=== PATIENT | female | born 1980 | race Caucasian/White ===

== ENCOUNTER 2021-04-01 20:35 | Day surgery (SDC) | payer OTHER, BC, MEDICAID ==
[2021-04-02 00:30] LABS: Bilirubin Neg (Negative); Blood, Urine Negative (Negative); Clarity Clear (Clear); Glucose, Urine (Dipstick) Normal (Negative); Ketone, Urine Negative (Negative); Leukocyte Negative (Negative); Nitrite Negative (Negative); Protein, Urine (Dipstick) Negative (Neg-Trace); Urobilinogen Normal mg/dL (Less than 2); pH, Urine 6.5 (5.0-9.0)
[2021-04-02 01:40] LABS: Bacteria/HPF Rare-Few HPF (None Seen); RBC/HPF 0-3 HPF (0-3); Squamous Epithelial 0-3 HPF (0-3); WBC/HPF None Seen HPF (0-3)
[2021-04-02 01:41] LABS: Mucous/LPF Rare LPF (<2+)
== END 2021-04-02 00:01 | disposition home or self-care (01) ==
LOC: CSHLD/OP 20:35
PROVIDERS: ATTEND Obstetrics & Gynecology
DX: O47.02 False labor before 37 completed weeks of gestation, second trimester (principal); O99.891 Other specified diseases and conditions complicating pregnancy; O34.219 Maternal care for unspecified type scar from previous cesarean delivery; R11.2 Nausea with vomiting, unspecified; R19.7 Diarrhea, unspecified; N85.8 Other specified noninflammatory disorders of uterus; Z3A.23 23 weeks gestation of pregnancy; Z98.51 Tubal ligation status; Z79.899 Other long term (current) drug therapy
CPT/HCPCS: 81001; 87480; 87510; 87660; 99284

== ENCOUNTER 2021-06-14 11:08 | Observation (INO) | payer BC, OTHER ==
[2021-06-14] MEDS ORDERED: hydrALAZINE 20 MG/ML VIAL SLOW IVP PRN (11:49)
[2021-06-14] MEDS ORDERED: Ondansetron PF 4 MG/2 ML Vial IVP PRN (11:49)
[2021-06-14] MEDS ORDERED: Acetaminophen 500 MG TAB PO PRN (11:49)
[2021-06-14] MEDS ORDERED: Zolpidem Tartrate 5 MG TAB PO PRN (11:49)
[2021-06-14] MEDS ORDERED: Promethazine HCl 25 MG/ML VIAL IM PRN (11:49)
[2021-06-14] MEDS ORDERED: Docusate 100 MG CAP PO PRN (11:49)
[2021-06-14] MEDS ORDERED: Azithromycin 500 MG in Sodium Chloride 0.9% 250 ML 250 ML IVPB SCH (12:00)
[2021-06-14 12:34] VITALS: BMI 31.6
[2021-06-14] MEDS: Ampicillin 2 GM in Sodium Chloride 0.9% 100 ML IVPB SCH ×2 (12:52→19:57)
[2021-06-14 13:16] LABS: #Monocytes 0.8 10x3/uL (0.0-1.1); #Neutrophils 9.1 10x3/uL (1.5-8.4); %Basophils 0.1 % (0.0-2.0); %Eosinophils 0.3 % (0.0-6.0); %Neutrophils 81.2 % (40.0-75.0); Hemoglobin 10.5 g/dL (12.0-15.5); Mean Corpuscular HGB CONC 32.2 g/dL (32.0-36.0); Mean Corpuscular Hemoglobin 28.8 pg (27.0-33.0); Mean Corpuscular Volume 89.3 fl (81.6-98.3); Mean Platelet Volume 11.4 fl (7.4-10.4); Platelet Count 249 10x3/uL (150-450); Red Blood Cell (RBC) Count 3.65 10x6/uL (3.90-5.03); White Blood Cell (WBC) Count 11.2 10x3/uL (3.5-10.5)
[2021-06-14 13:35] LABS: Bilirubin Neg (Negative); Blood, Urine 10 (Negative); Clarity Clear (Clear); Glucose, Urine (Dipstick) 250 mg/dL (Negative); Ketone, Urine Negative (Negative); Leukocyte Negative (Negative); Nitrite Negative (Negative); Protein, Urine (Dipstick) Negative (Neg-Trace); Urobilinogen Normal mg/dL (Less than 2)
[2021-06-14 13:44] LABS: Urine Culture Reflex No No
[2021-06-14 14:07] LABS: SARS-CoV-2 NAA Rapid Test Not Detected (NotDetected)
[2021-06-14 14:09] LABS: Bacteria/HPF None Seen HPF (None Seen); RBC/HPF 0-3 HPF (0-3); Squamous Epithelial 0-3 HPF (0-3); WBC/HPF None Seen HPF (0-3)
[2021-06-14 14:57] LABS: HIV (1/2) Antibody/Antigen Non-Reactive (NonReactive); HIV 1/2 INDEX 0.08 S/CO (<1.00); Hep B Surf Ag Non-Reactive S/CO (NonReactive); Syphilis Antibody Nonreactive (Nonreactive); Syphilis Antibody Index 0.04 S/CO (<1.00 Non-Reactive)
[2021-06-14 14:58] LABS: HBSAg Index 0.18 S/CO (0-0.99)
[2021-06-14] MEDS ORDERED: metFORMIN 500 MG TAB PO SCH (17:00)
[2021-06-14] MEDS ORDERED: hydrOXYzine Pamoate 25 mg Capsule PO SCH (17:15)
[2021-06-14] MEDS ORDERED: hydrOXYzine Pamoate 25 mg Capsule PO PRN (19:11)
[2021-06-14] MEDS: Lactated Ringer's 1,000 ML IV SCH ×2 (22:16→23:57)
[2021-06-14] MEDS: Betamet Acet/Betamet Na Ph 30 MG/5 ML VIAL IM SCH (23:58)
[2021-06-15] MEDS: Ampicillin 2 GM in Sodium Chloride 0.9% 100 ML IVPB SCH ×2 (00:15→07:46)
[2021-06-15] MEDS: Lactated Ringer's 1,000 ML IV SCH (04:00)
[2021-06-15] MEDS: Betamet Acet/Betamet Na Ph 30 MG/5 ML VIAL IM SCH (13:36)
== END 2021-06-15 14:08 | disposition home or self-care (01) ==
LOC: CSHLD/OP 11:08 → CSHLD 11:15
PROVIDERS: ADMIT Obstetrics & Gynecology; ATTEND Obstetrics & Gynecology
DX: O47.03 False labor before 37 completed weeks of gestation, third trimester (principal); O09.213 Supervision of pregnancy with history of pre-term labor, third trimester; O26.853 Spotting complicating pregnancy, third trimester; O09.523 Supervision of elderly multigravida, third trimester; O34.211 Maternal care for low transverse scar from previous cesarean delivery; O24.415 Gestational diabetes mellitus in pregnancy, controlled by oral hypoglycemic drugs; O99.013 Anemia complicating pregnancy, third trimester; Z3A.33 33 weeks gestation of pregnancy; Z20.822 Contact with and (suspected) exposure to COVID-19
CPT/HCPCS: 36415; 36416; 81001; 85025; 86780; 86850; 86900; 86901; 87340; 87389; 99285; J0290; J0456; J0702; J3490; J7050; J7120; Q0177; U0002

== ENCOUNTER 2021-07-14 00:47 | Inpatient (IN) | payer BC, OTHER ==
[2021-07-14 01:13] VITALS: BMI 34.2
[2021-07-14] MEDS ORDERED: Butorphanol Tartrate 1 MG/ML VIAL SLOW IVP PRN (01:54)
[2021-07-14] MEDS ORDERED: Lactated Ringer's 1,000 ML IV SCH ×2 (02:00→07:00)
[2021-07-14] MEDS ORDERED: Butorphanol Tartrate 1 MG/ML VIAL ONE (02:05)
[2021-07-14] MEDS ORDERED: hydrOXYzine Pamoate 25 mg Capsule PO SCH (03:00)
[2021-07-14] MEDS ORDERED: Promethazine HCl 25 MG/ML VIAL IM PRN ×4 (03:08→12:38)
[2021-07-14 04:38] LABS: SARS-CoV-2 NAA Rapid Test Not Detected (NotDetected)
[2021-07-14] MEDS ORDERED: Famotidine/PF 20 mg/2ml Vial SLOW IVP PRN (06:49)
[2021-07-14] MEDS ORDERED: hydrALAZINE 20 MG/ML VIAL SLOW IVP PRN ×2 (06:49→12:38)
[2021-07-14] MEDS ORDERED: Ondansetron PF 4 MG/2 ML Vial IVP PRN ×2 (06:49→10:15)
[2021-07-14] MEDS ORDERED: Bicitra 30 ML UDCUP PO PRN (06:49)
[2021-07-14] MEDS ORDERED: CEFAZOLIN 2 GM in Premix Bag 1 BAG IVPB SCH (07:00)
[2021-07-14] MEDS ORDERED: PHENYLEPHRINE-NS 100 MCG/ML 10 ML SYRINGE ONE (07:13)
[2021-07-14] MEDS ORDERED: Oxytocin 10 UNITS/ML VIAL ONE ×2 (07:13→10:07)
[2021-07-14] MEDS ORDERED: Phenylephrine 40 MG/NS 250 ML 250 ML ONE (07:14)
[2021-07-14] MEDS ORDERED: Fentanyl 100 MCG/2 ML VIAL ONE (07:16)
[2021-07-14] MEDS ORDERED: Morphine PF 10 MG/10 ML VIAL ONE (07:16)
[2021-07-14] MEDS ORDERED: ePHEDrine Sulfate 50 MG/10 ML VIAL ONE ×2 (07:17→09:17)
[2021-07-14 07:34] LABS: Hemoglobin 10.9 g/dL (12.0-15.5); Mean Corpuscular HGB CONC 31.1 g/dL (32.0-36.0); Mean Corpuscular Hemoglobin 27.9 pg (27.0-33.0); Mean Corpuscular Volume 89.8 fl (81.6-98.3); Mean Platelet Volume 12.3 fl (7.4-10.4); Platelet Count 232 10x3/uL (150-450); RBC Distribution Width 14.5 % (11.5-14.5); Red Blood Cell (RBC) Count 3.91 10x6/uL (3.90-5.03); White Blood Cell (WBC) Count 14.2 10x3/uL (3.5-10.5)
[2021-07-14 08:30] LABS: Hep B Surf Ag Non-Reactive S/CO (NonReactive); Syphilis Antibody Nonreactive (Nonreactive); Syphilis Antibody Index 0.04 S/CO (<1.00 Non-Reactive)
[2021-07-14 08:38] LABS: HBSAg Index 0.19 S/CO (0-0.99)
[2021-07-14] MEDS ORDERED: Ondansetron PF 4 MG/2 ML Vial ONE (09:23)
[2021-07-14] MEDS ORDERED: HYDROmorphone 2 MG/ML VIAL SLOW IVP PRN (10:15)
[2021-07-14] MEDS ORDERED: Promethazine HCl 25 MG SUPP PR PRN (10:15)
[2021-07-14] MEDS ORDERED: Naloxone HCl 0.4 mg/ml Vial IVP PRN ×2 (10:15)
[2021-07-14] MEDS ORDERED: Naloxone HCl 0.4 mg/ml Vial IV PRN (10:15)
[2021-07-14] MEDS ORDERED: Ketorolac Tromethamine 30 MG/ML VIAL IVP SCH (10:15)
[2021-07-14] MEDS ORDERED: Ondansetron HCl/PF 4 MG/2 ML Vial IVP PRN (10:15)
[2021-07-14] MEDS ORDERED: Hydrocerin (Eucerin) Cream 120 gm Jar TOP PRN (10:15)
[2021-07-14] MEDS ORDERED: diphenhydrAMINE 50 MG/ML VIAL IVP PRN (10:15)
[2021-07-14] MEDS ORDERED: Meperidine HCl/PF 25 MG/ML VIAL SLOW IVP PRN (10:15)
[2021-07-14] MEDS ORDERED: Communication Order-Pharmacy FS SCH (10:15)
[2021-07-14] MEDS ORDERED: Bisacodyl 10 MG SUPP PR PRN (12:38)
[2021-07-14] MEDS ORDERED: Boostrix 0.5 ML (Tdap) VIAL IM ONE (12:38)
[2021-07-14] MEDS ORDERED: Zolpidem Tartrate 5 MG TAB PO PRN (12:38)
[2021-07-14] MEDS ORDERED: Misoprostol 200 MCG TAB PR PRN (12:38)
[2021-07-14] MEDS ORDERED: diphenhydrAMINE 25 MG CAP PO PRN (12:38)
[2021-07-14] MEDS ORDERED: Measles/Mumps/Rubella 10 MCG/0.5 ML VIAL SC ONE (12:38)
[2021-07-14] MEDS ORDERED: Methylergonovine 0.2 MG/ML VIAL IM PRN (12:38)
[2021-07-14] MEDS ORDERED: Lanolin Ointment 7 GM TUBE TOP PRN (12:38)
[2021-07-14] MEDS ORDERED: Simethicone Chewable 80 MG TAB PO PRN (12:38)
[2021-07-14] MEDS ORDERED: NS w/ Oxytocin 30 units 500 ML IV SCH (12:38)
[2021-07-14] MEDS ORDERED: Varicella virus, LIVE 0.5 ML VIAL SC ONE (12:38)
[2021-07-14] MEDS: Ondansetron PF 4 MG/2 ML Vial IVP PRN ×2 (13:24→17:58)
[2021-07-14] MEDS: Enoxaparin Sodium 40 MG/0.4 ML SYRINGE SC SCH (17:51)
[2021-07-14] MEDS: Ketorolac Tromethamine 30 MG/ML VIAL IVP PRN (21:37)
[2021-07-14] MEDS: Docusate Calcium (SURFAK) 240 MG CAP PO SCH (23:36)
[2021-07-14] MEDS: Ferrous Sulfate 325 MG TAB PO SCH (23:36)
[2021-07-15] MEDS: Ketorolac Tromethamine 30 MG/ML VIAL IVP PRN (04:49)
[2021-07-15 06:01] LABS: Hemoglobin 8.8 g/dL (12.0-15.5); Mean Corpuscular HGB CONC 32.2 g/dL (32.0-36.0); Mean Corpuscular Hemoglobin 28.2 pg (27.0-33.0); Mean Corpuscular Volume 87.5 fl (81.6-98.3); Mean Platelet Volume 11.9 fl (7.4-10.4); Platelet Count 172 10x3/uL (150-450); RBC Distribution Width 14.5 % (11.5-14.5); Red Blood Cell (RBC) Count 3.12 10x6/uL (3.90-5.03); White Blood Cell (WBC) Count 11.7 10x3/uL (3.5-10.5)
[2021-07-15] MEDS: Ferrous Sulfate 325 MG TAB PO SCH ×2 (09:24→21:11)
[2021-07-15] MEDS: Docusate Calcium (SURFAK) 240 MG CAP PO SCH ×2 (09:24→21:13)
[2021-07-15] MEDS: Prenatal Vitamin 1 TAB PO SCH (09:24)
[2021-07-15] MEDS: HYDROcodone/Acetaminophen 5/325 mg Tablet PO PRN ×3 (12:13→22:06)
[2021-07-15] MEDS: Ibuprofen 800 MG TAB PO SCH ×2 (14:00→21:11)
[2021-07-15] MEDS: Enoxaparin Sodium 40 MG/0.4 ML SYRINGE SC SCH (18:25)
[2021-07-16] MEDS: Ibuprofen 800 MG TAB PO SCH (04:42)
[2021-07-16] MEDS: HYDROcodone/Acetaminophen 5/325 mg Tablet PO PRN ×2 (05:57→10:09)
[2021-07-16 07:42] VITALS: BP 112/56; TEMP 97.5
[2021-07-16] MEDS: Ferrous Sulfate 325 MG TAB PO SCH (08:55)
[2021-07-16] MEDS: Prenatal Vitamin 1 TAB PO SCH (08:55)
[2021-07-16] MEDS: Docusate Calcium (SURFAK) 240 MG CAP PO SCH (08:56)
== END 2021-07-16 13:20 | disposition home or self-care (01) | DRG 788 ==
LOC: CSHLD/OP 00:47 → CSHLD 06:52 → CSHPP 13:05
PROVIDERS: ADMIT Obstetrics & Gynecology; ATTEND Obstetrics & Gynecology
PROC: 10D00Z1 Extraction of Products of Conception, Low, Open Approach (ICD-10-PCS; principal; 2021-07-14)
DX: O34.211 Maternal care for low transverse scar from previous cesarean delivery (principal); Z3A.38 38 weeks gestation of pregnancy; Z37.0 Single live birth; O24.425 Gestational diabetes mellitus in childbirth, controlled by oral hypoglycemic drugs; O99.824 Streptococcus B carrier state complicating childbirth; Z20.822 Contact with and (suspected) exposure to COVID-19
CPT/HCPCS: 36415; 51702; 76815; 85027; 86780; 86850; 86900; 86901; 87340; 99285; J0595; J0690; J1200; J1650; J1885; J2274; J2405; J2550; J2590; J3010; Q0177; U0002

== ENCOUNTER 2022-02-14 10:12 | Emergency (ER) | payer BC, OTHER ==
[2022-02-14] MEDS ORDERED: predniSONE 20 MG TAB ONE (11:07)
[2022-02-14] MEDS ORDERED: Cyclobenzaprine 10 MG TAB ONE (11:07)
[2022-02-14] MEDS ORDERED: Ketorolac Tromethamine 30 MG/ML VIAL ONE (11:07)
== END 2022-02-14 11:15 | disposition home or self-care (01) ==
LOC: CSHERS 10:12
DX: M54.16 Radiculopathy, lumbar region (principal)
CPT/HCPCS: 99283; J1885; J7512

== ENCOUNTER 2022-02-17 09:07 | Emergency (ER) | payer OTHER ==
[2022-02-17] MEDS ORDERED: Morphine 4 MG/ML VIAL ONE (09:56)
[2022-02-17] MEDS ORDERED: Diazepam 5 MG TAB ONE (09:57)
[2022-02-17] MEDS ORDERED: Ketorolac Tromethamine 30 MG/ML VIAL ONE (09:57)
== END 2022-02-17 10:10 | disposition home or self-care (01) ==
LOC: CSHERS 09:07
DX: M54.50 Low back pain, unspecified (principal)
CPT/HCPCS: 96372; 99283; J1885; J2270

== ENCOUNTER 2022-06-04 10:37 | Emergency (ER) | payer OTHER ==
[2022-06-04 12:44] LABS: SARS-CoV-2 NAA Rapid Test Not Detected (NotDetected)
== END 2022-06-04 11:50 | disposition home or self-care (01) ==
LOC: CSHERS 10:37
DX: B34.9 Viral infection, unspecified (principal); Z20.822 Contact with and (suspected) exposure to COVID-19
CPT/HCPCS: 99283